=== PATIENT | female | born 1985 | race Two or more races ===

== ENCOUNTER 2025-03-06 08:39 | Inpatient (IN) | payer OTHER ==
[~2025-03-06] VITALS: Ht 152.4 cm; Wt 56.7 kg
--- NOTE | 2025-03-06 08:47 | NUR ---
PACIENTE ALERTA Y ORIENTADA REFIERE SER ENVIADA POR EL DR. LORENZO NGUYEN PARA SER EVALUADA POR THROMBOSED HEMORRHOIDS. S/V DENTRO DE PARAMETROS NORMALES.
[2025-03-06] MEDS ORDERED: MORPHINE SULFATE 4 MG/ML CARTRIDGE IV ONE (09:00)
[2025-03-06] MEDS ORDERED: ONDANSETRON HCL 2 MG/ML VIAL IV ONE (09:00)
[2025-03-06] MEDS ORDERED: FAMOtidine 10 MG/ML (4ML VIAL) IV ONE (09:00)
[2025-03-06] MEDS ORDERED: 0.9 % SODIUM CHLORIDE 1,000 ML IV SCH ×2 (09:00→12:30)
--- NOTE | 2025-03-06 09:54 | NUR ---
SE ORIENTA PTE SOBRE TX MEDICO Y LA MISMA REFIERE ENTENDER Y ACEPTAR. SE CANALIZA Y SE COLECTAN MUESTRAS DE LAB, SE REALIZA EKG Y SE HACE ENTREGA DE ENVASE PARA U/A. PTE REHUSA MEDS.
[2025-03-06 10:02] LABS: BASO % 0.8 % (0.1-1.2); EOS # 0.07 (0.04-0.54); EOS % 1.8 % (0.7-7.0); LYMPH # 1.59 (1.18-3.74); LYMPH % 40.2 % (19.3-53.1); MEAN PLATELET VOLUME 8.80 fl (9.4-12.4); MONO # 0.33 (0.24-0.82); MONO % 8.3 % (4.7-12.5); NEUT # 1.93 (1.56-6.13); NEUT % 48.6 % (34.0-71.1); RED CELL DISTRIBUTION WIDTH 17.0 % (11.6-14.4)
[2025-03-06 10:28] LABS: INR 1.06
[2025-03-06 10:31] LABS: ALT/SGPT 23 U/L (12-78); AST/SGOT 15 U/L (15-37); BILIRUBIN TOTAL 0.53 mg/dL (0.3-1.2); BUN CREA RATIO 12 (7.0-25.0); CREATININE SERUM 0.73 mg/dL (0.55-1.02); GFR 88.75; GLOBULINA 3.9 G/DL (2.4-3.5); GLUCOSE FASTING 82 mg/dL (65-100); OSMOLALITY SERUM 283 MOSM/KG (275-295)
[2025-03-06 10:43] LABS: HCG QUANTITATIVE < 1 mUI/mL (1-3)
[2025-03-06 11:16] LABS: URINE APPEARANCE Clear; URINE BACTERIA 91.1 uL (0.0-1933); URINE BILIRRUBIN Negative (NEGATIVE); URINE BLOOD Trace; URINE COLOR Yellow; URINE EPITHELIAL CELLS 3.8 uL (0.0-38.8); URINE GLUCOSE Negative (NEGATIVE); URINE KETONE Negative (NEGATIVE); URINE LEUKOCYTE Negative; URINE NITRATE Negative; URINE PROTEIN Negative (NEGATIVE); URINE RBC 10.2 uL (0.0-20.8); URINE UROBILINOGEN 0.2 E.U./dl
[2025-03-06 11:21] LABS: URINE CAST 0.00 uL (0.0-1.40); URINE WBC 0.9 uL (0.0-23.2)
[2025-03-06] MEDS ORDERED: MORPHINE SULFATE 2 MG/ML SYRINGE IV SCH (12:29)
[2025-03-06] MEDS ORDERED: ENOXAPARIN SODIUM 40 MG/0.4 ML SYRINGE SUBCUTANEO ONE ×2 (12:30→14:26)
[2025-03-06] MEDS ORDERED: ACETAMINOPHEN 325 MG TABLET PO PRN (12:30)
[2025-03-06 14:48] VITALS: BP 121/73; O2SAT 100
[2025-03-06 15:35] LABS: COL EPI 139 SECONDS (82-175)
[2025-03-06] MEDS ORDERED: NA PHOS,M-B/NA PHOS,DI-BA 1 BOTTLE ENEMA RECTAL NR (16:00)
[2025-03-06 22:28] VITALS: BP 106/65; O2SAT 100
[2025-03-07 02:46] VITALS: BP 97/57
[2025-03-07 09:05] VITALS: BP 115/69; O2SAT 98
[2025-03-07] MEDS ORDERED: METRONIDAZOLE/SODIUM CHLORIDE 500 MG/100 ML PIGGYBACK IV ONE (14:26)
[2025-03-07] MEDS ORDERED: CEFTRIAXONE SODIUM 2,000 MG VIAL ONE (14:26)
[2025-03-07] MEDS ORDERED: BUPIVACAINE HCL/MPF 0.5% 30ML VIAL ONE (14:32)
[2025-03-07] MEDS ORDERED: LIDOCAINE HCL 1%/EPINEPHRINE 20ML VIAL IJ ONE (14:33)
[2025-03-07] MEDS ORDERED: HEMOSTATIC MATRIX 1 KIT KIT TOP ONE (14:33)
[2025-03-07] MEDS ORDERED: DIBUCAINE 30 GM TUBE ONE (14:40)
[2025-03-07] MEDS ORDERED: NEURONTIN300 MG PO (15:28)
[2025-03-07] MEDS ORDERED: TRAM1TAB98 PO (15:28)
[2025-03-07] MEDS ORDERED: COLACE100 MG PO (15:28)
[2025-03-07 21:33] VITALS: BP 121/60; O2SAT 100
== END 2025-03-07 20:36 | disposition home or self-care (01) | DRG 349 ==
LOC: ER 08:39 → MEDI 12:42 → SEC-K 12:42 → MEDI 13:33
PROVIDERS: General Practice; ADMIT Internal Medicine Geriatric Medicine; ATTEND Internal Medicine Geriatric Medicine
PROC: 06BY0ZC Excision of Hemorrhoidal Plexus, Open Approach (ICD-10-PCS; principal; 2025-03-06)
PROC: 3E0T3BZ Introduction of Anesthetic Agent into Peripheral Nerves and Plexi, Percutaneous Approach (ICD-10-PCS; 2025-03-06)
DX: K64.5 Perianal venous thrombosis (principal)